=== PATIENT | female | born 1955 | race Caucasian/White ===

== ENCOUNTER → 2016-11-11 | Outpatient (CLI) | payer OTHER ==
--- NOTE | 2016-11-11 12:16 | EST ---
DATE OF SERVICE: 11/11/2016 AGE: 61Y SEX: F HT: 63" WT: 239 lbs. Protocol Jimmie: X Other: Stress Stage: 3 Dur. of Exercise: 6:00 *Heart Rate Blood Pressure *Rest: 102 Rest: 137/90 * *Max. Achieved: 140 Maximum BP: 205/104 85% PMHR: 136 100% PMHR: 160 *METS: 7.3 INDICATIONS: Chest pain. MEDICATIONS: Losartan, atorvastatin, metformin. Baseline EKG shows sinus rhythm, poor R-wave progression, normal axis, normal intervals. Patient exercised on Jimmie protocol for a total of 6 minutes, achieving 7 METs, 87% of predicted maximal heart rate without chest pain. Test was stopped secondary to fatigue and tiredness. PVCs are noted throughout the study. There was no significant ST-segment depression. CONCLUSION: 1. Average exercise tolerance. 2. Negative stress test by EKG criteria. 3. Frequent premature ventricular contractions.
== END | disposition home or self-care (01) ==
LOC: RADNMMAIN 10:41
PROVIDERS: ATTEND Family Medicine
DX: I49.3 Ventricular premature depolarization (principal); R07.9 Chest pain, unspecified; Z79.84 Long term (current) use of oral hypoglycemic drugs; Z79.899 Other long term (current) drug therapy
CPT/HCPCS: 93017

== ENCOUNTER → 2017-03-25 | Outpatient (CLI) | payer OTHER ==
[2017-03-25 09:14] LABS: Blood Urea Nitrogen 22 mg/dL (7-17); Non-African American GFR(MDRD) >60 (>60 ml/min/1.73 sqM)
--- NOTE | 2017-03-25 10:17 | CT ---
EXAMINATION TYPE: CT soft tissue neck w con DATE OF EXAM: 03/25/2017 COMPARISON: NONE HISTORY: Swelling, mass, lump in neck CT DLP: 806 mGycm CONTRAST: CT scan of the neck is performed with IV Contrast, patient injected with 100 ml mL of Omnipaque 300. Contrast enhanced CT of the neck was performed from the skull base through the lung apices. AIRWAY: The supraglottic, glottic, and subglottic portions of the airway appear patent and free of mass. Mild fullness of the tonsillar pillars bilaterally. SALIVARY GLANDS: Mild fullness of the right submandibular gland relative to its left-sided counterpar t measuring 3.6 x 2.7 cm versus 3.3 x 1.8 cm. No visible mass or significant surrounding inflammatory change. No evidence for sialolithiasis. Parotid glands appear to be symmetric. THYROID GLAND: No nodules or masses seen. LYMPH NODES: No adenopathy seen greater than 1cm. LUNG APICES: No nodule or mass is seen. OTHER: Vascular structures are patent. No significant degenerative change of the cervical spine. N o abscess seen. Mucous retention cyst or polyp within the right maxillary sinus. IMPRESSION: 1. Mild asymmetric fullness of the right submandibular gland versus its left-sided counterpart withou t evidence for intrinsic mass or inflammatory change. Correlate clinically. 2. Small mucous retention cyst or polyp within the right maxillary sinus. 3.Mild fullness of the tonsillar pillars bilaterally.
== END | disposition home or self-care (01) ==
LOC: RADCTMAIN 08:17
PROVIDERS: ATTEND Otolaryngology
DX: J35.8 Other chronic diseases of tonsils and adenoids (principal)
CPT/HCPCS: 82565; 84520; 70491; 36415; Q9967

== ENCOUNTER → 2017-04-23 | Outpatient (CLI) | payer OTHER ==
[2017-04-23 11:04] LABS: ALT 43 U/L (9-52); AST 23 U/L (14-36); Alkaline Phosphatase 71 U/L (38-126); Anion Gap 11 mmol/L; Blood Urea Nitrogen 19 mg/dL (7-17); Calcium 9.7 mg/dL (8.4-10.2); Carbon Dioxide 23 mmol/L (22-30); Chloride 104 mmol/L (98-107); Cholesterol 219 mg/dL (<200); Glucose 166 mg/dL (74-99); HDL Cholesterol 60 mg/dL (40-60); Non-African American GFR(MDRD) >60 (>60 ml/min/1.73 sqM); Potassium 4.7 mmol/L (3.5-5.1); Sodium 138 mmol/L (137-145); Total Bilirubin 0.6 mg/dL (0.2-1.3); Total Protein 7.4 g/dL (6.3-8.2)
[2017-04-23 13:22] LABS: Hemoglobin A1C 7.4 % (4.2-6.1)
== END | disposition home or self-care (01) ==
LOC: LABWHC1 10:06
PROVIDERS: ATTEND Family Medicine
DX: E11.9 Type 2 diabetes mellitus without complications (principal)
CPT/HCPCS: 36415; 80053; 80061; 83036

== ENCOUNTER 2017-05-11 09:25 | Emergency (ER) | payer OTHER ==
[2017-05-11] MEDS ORDERED: KETOROLAC 60 MG/2 ML VIAL IM STA (09:49)
[2017-05-11] MEDS ORDERED: ORPHENADRINE 30 MG/ML 2 ML VIAL IM STA (09:49)
[2017-05-11] MEDS ORDERED: MORPHINE SULFATE 10 MG/ML SYRINGE IM STA (09:49)
--- NOTE | 2017-05-11 10:33 | XR ---
EXAMINATION TYPE: XR lumbar spine 2 or 3V , 3 VIEWS DATE OF EXAM ORDERED: 05/11/2017 HISTORY: Pain. COMPARISON: None. FINDINGS: There has been a previous cholecystectomy. Vertebral body height is maintained. There is a degenerative grade 1 spondylolisthesis of L5 on S1. T here is disc space loss at L5-S1. This hypertrophic spondylosis at L4-5 as well as in the lower thora cic spine. There is facet arthropathy in the lower lumbar facets. The pedicles are intact. IMPRESSION: 1. NO ACUTE OSSEOUS LESION. 2. MODERATELY SEVERE DEGENERATIVE CHANGE.
--- NOTE | 2017-05-11 10:35 | ED ---
Back Pain HPI - General Chief Complaint: Back Pain/Injury Stated Complaint: back pain Time Seen by Provider: 05/11/17 09:41 Source: patient, RN notes reviewed, old records reviewed Limitations: no limitations - History of Present Illness Initial Comments: This is a 62-year-old female with multiple back injuries in the past presented to emergency department with 2 days of increased lower back pain. She reports that she twisted wrong yesterday. Patient states that it's worse with certain movements. Denies any saddle anesthesias or urinary incontinence. States that she was taking Flexeril and had no relief of the pain. Patient denies any recent falls or trauma to the lower back. Denies any abdominal pain. - Related Data Home Medications Medication Instructions Recorded Confirmed Atorvastatin [Lipitor] 40 mg PO HS 04/21/14 05/11/17 metFORMIN HCL [Glucophage] 500 mg PO HS 04/21/14 05/11/17 ALPRAZolam [Xanax] 0.25 mg PO DAILY PRN 01/18/16 05/11/17 Losartan/Hydrochlorothiazide 1 tab PO DAILY 03/14/16 05/11/17 [Losartan-Hctz 100-25 mg Tab] Albuterol Inhaler [Ventolin Hfa 2 puff INHALATION RT-Q6H PRN 05/11/17 05/11/17 Inhaler] Multivitamins, Thera [Multivitamin 1 tab PO DAILY 05/11/17 05/11/17 (formulary)] Previous Rx's Medication Instructions Recorded Acetaminophen-Codeine 300-30mg 1 tab PO Q6H PRN #15 tablet 05/11/17 [Tylenol #3] Baclofen 10 mg PO TID #15 tab 05/11/17 Dexamethasone 0.75 mg PO DAILY #12 tab 05/11/17 Allergies Allergy/AdvReac Type Severity Reaction Status Date / Time No Known Allergies Allergy Verified 05/11/17 10:06 Review of Systems ROS Statement: Those systems with pertinent positive or pertinent negative responses have been documented in the HPI. ROS Other: All systems not noted in ROS Statement are negative. Past Medical History Past Medical History: Diabetes Mellitus, Hyperlipidemia, Hypertension, Osteoarthritis (OA) Additional Past Medical History / Comment(s): Seasonal allergies, Bruise on R arm History of Any Multi-Drug Resistant Organisms: None Reported Past Surgical History: Back Surgery, Cholecystectomy, Hysterectomy, Orthopedic Surgery Additional Past Surgical History / Comment(s): Colonoscopy. EDG,REMOVAL OF PLATE AND SCREW FROM BACK,NECK SURGERY, LEFT KNEE ARTHROSCOPIC,RIGHT HAND SURGERY, Past Anesthesia/Blood Transfusion Reactions: No Reported Reaction Past Psychological History: Anxiety Smoking Status: Current every day smoker Past Alcohol Use History: Daily Past Drug Use History: Marijuana - Past Family History Mother Family Medical History: No Reported History Sister(s) Family Medical History: Cancer Additional Family Medical History / Comment(s): Breast. General Exam - General Exam Comments Initial Comments: This is a 62 year old female, patient appears in distress. Limitations: no limitations General appearance: alert, in no apparent distress Head exam: Present: atraumatic, normocephalic, normal inspection Eye exam: Present: normal appearance, PERRL, EOMI. Absent: scleral icterus, conjunctival injection, periorbital swelling ENT exam: Present: normal exam, mucous membranes moist Neck exam: Present: normal inspection. Absent: tenderness, meningismus, lymphadenopathy Respiratory exam: Present: normal lung sounds bilaterally. Absent: respiratory distress, wheezes, rales, rhonchi, stridor Cardiovascular Exam: Present: regular rate, normal rhythm, normal heart sounds. Absent: systolic murmur, diastolic murmur, rubs, gallop, clicks GI/Abdominal exam: Present: soft, normal bowel sounds. Absent: distended, tenderness, guarding, rebound, rigid Extremities exam: Present: normal inspection, full ROM, normal capillary refill. Absent: tenderness, pedal edema, joint swelling, calf tenderness Back exam: Present: normal inspection, tenderness (lumbar spinal tenderness. ) Neurological exam: Present: alert, oriented X3, CN II-XII intact Psychiatric exam: Present: normal affect, normal mood Skin exam: Present: warm, dry, intact, normal color. Absent: rash Course Vital Signs 05/11/17 05/11/17 09:34 10:55 Temperature 98.4 F 97.0 F L Pulse Rate 102 H 72 Respiratory 20 18 Rate Blood Pressure 179/99 168/80 O2 Sat by Pulse 97 Oximetry Medical Decision Making - Medical Decision Making This is a 62-year-old female with multiple back injuries in the past presented to emergency department with 2 days of increased lower back pain. She reports that she twisted wrong yesterday. Patient is tender over lumbar spine, and it is worse with movement. No abdominal pain, and the pain does not radiate down the leg. She states that it becomes worse with a certain movement. Patient lumbar spine xray shows moderate arthritic changes. Patient given IM pain medication and feeling better. Patient will be discharged with pain medication and antiinflammatory medicaiotn. Discussed follow up with PCP in 1-2 days. REturn paramters discussed. - Radiology Data Radiology results: report reviewed No acute osseous lesion. Moderately severe degenerative changes. Degenerative grade 1 spondylolisthesis of L5 on S1. The L5-S1. Spondylosis of L4-L5. Disposition Clinical Impression: Acute exacerbation of chronic low back pain Disposition: HOME SELF-CARE Condition: Good Instructions: Acute Low Back Pain (ED) Additional Instructions: Patient should follow-up with PCP and orthopedic back specialist. Patient should take medications as prescribed. Return to the emergency department if any alarming signs or symptoms occur. Prescriptions: Acetaminophen-Codeine 300-30mg [Tylenol #3] 1 tab PO Q6H PRN #15 tablet PRN Reason: Pain Baclofen 10 mg PO TID #15 tab Dexamethasone 0.75 mg PO DAILY #12 tab Referrals: Efren Higgins MD [Primary Care Provider] - 1-2 days Time of Disposition: 10:39
[2017-05-11 10:55] VITALS: BP 168/80; PULSE 72; RESP 18; TEMP 97
== END 2017-05-11 10:55 | disposition home or self-care (01) ==
LOC: EC 09:25
DX: M54.5 Low back pain (principal); G89.29 Other chronic pain; M43.17 Spondylolisthesis, lumbosacral region; M47.816 Spondylosis without myelopathy or radiculopathy, lumbar region; E11.9 Type 2 diabetes mellitus without complications; E78.5 Hyperlipidemia, unspecified; I10 Essential (primary) hypertension; F17.200 Nicotine dependence, unspecified, uncomplicated; Z79.84 Long term (current) use of oral hypoglycemic drugs; Z79.899 Other long term (current) drug therapy
CPT/HCPCS: 99284; 96372 ×3; 72100; J2360; J2270; J1885

== ENCOUNTER → 2017-05-26 | Outpatient (CLI) | payer OTHER ==
[2017-05-26 11:38] LABS: Blood Urea Nitrogen 21 mg/dL (7-17); Non-African American GFR(MDRD) >60 (>60 ml/min/1.73 sqM)
== END | disposition home or self-care (01) ==
LOC: LABWHC1 10:39
PROVIDERS: ATTEND Orthopaedic Surgery Orthopaedic Surgery of the Spine
DX: Z01.812 Encounter for preprocedural laboratory examination (principal); N28.9 Disorder of kidney and ureter, unspecified
CPT/HCPCS: 36415; 82565; 84520

== ENCOUNTER → 2017-06-13 | Outpatient (CLI) | payer OTHER ==
[2017-06-13 10:38] LABS: Basophils # (A) 0.1 k/uL (0-0.2); Basophils % (A) 1 %; CH 34.5; CHCM 34.2; Eosinophils # (A) 0.1 k/uL (0-0.7); Eosinophils % (A) 2 %; HDW 2.33; HGB 13.8 gm/dL (11.4-16.0); Luc # (Auto) 0.13; Luc % (Auto) 2; Lymphocytes # (A) 2.6 k/uL (1.0-4.8); Lymphocytes % (A) 38 %; MCH 34.1 pg (25.0-35.0); MCHC 33.7 g/dL (31.0-37.0); MCV 101.4 fL (80.0-100.0); Macrocytosis Slight; Mean Platelet Volume 7.2; Monocytes # (A) 0.4 k/uL (0-1.0); Monocytes % (A) 6 %; Neutrophils # (A) 3.5 k/uL (1.3-7.7); Neutrophils % (A) 52 %; RBC 4.04 m/uL (3.80-5.40); RDW 13.4 % (11.5-15.5); WBC 6.8 k/uL (3.8-10.6)
[2017-06-13 10:41] LABS: Prothrombin Time 10.2 sec (9.0-12.0)
[2017-06-13 10:42] LABS: Partial Thromboplastin Time 24.5 sec (22.0-30.0)
[2017-06-13 10:43] LABS: Appearance,Urine Clear (Clear); Bilirubin,Urine Negative (Negative); Glucose,Urine (UA) 2+ (Negative); Ketones,Urine Negative (Negative); Leukocyte Esterase,Urine Negative (Negative); Nitrite,Urine Negative (Negative); PH, Urine 5.5 (5.0-8.0); Protein,Urine Negative (Negative); Specific Gravity,Urine 1.013 (1.001-1.035); UA Billing (MACRO vs. MICRO) CHEM; Urobilinogen,Urine <2.0 mg/dL (<2.0)
[2017-06-13 11:07] LABS: Anion Gap 12 mmol/L; Blood Urea Nitrogen 23 mg/dL (7-17); Calcium 9.8 mg/dL (8.4-10.2); Carbon Dioxide 26 mmol/L (22-30); Chloride 102 mmol/L (98-107); Glucose 144 mg/dL (74-99); Non-African American GFR(MDRD) >60 (>60 ml/min/1.73 sqM); Potassium 4.5 mmol/L (3.5-5.1); Sodium 140 mmol/L (137-145)
--- NOTE | 2017-06-13 11:45 | XR ---
EXAMINATION TYPE: XR chest 2V DATE OF EXAM: 06/13/2017 COMPARISON: Prior chest x-ray 04/21/2014 HISTORY: Presurgical testing TECHNIQUE: Frontal and lateral views of the chest are obtained. FINDINGS: There is no focal air space opacity, pleural effusion, or pneumothorax seen. The cardiac silhouette size is within normal limits. Lung volumes are prominent suggesting underlying COPD. Multi level thoracic spondylosis. Postop changes are noted to the cervical spine. There are old left-sided rib fractures which appear healed. Intact. IMPRESSION: No acute cardiopulmonary process.
== END | disposition home or self-care (01) ==
LOC: RADXRMAIN 09:45
PROVIDERS: ATTEND Orthopaedic Surgery Orthopaedic Surgery of the Spine
DX: Z01.818 Encounter for other preprocedural examination (principal); Z01.812 Encounter for preprocedural laboratory examination; M48.00 Spinal stenosis, site unspecified
CPT/HCPCS: 36415; 71020; 80048; 81003; 85025; 85610; 85730

== ENCOUNTER → 2017-06-19 | Outpatient (CLI) | payer OTHER | END | disposition home or self-care (01) | LOC: LABPAT 12:14 | PROVIDERS: ATTEND Orthopaedic Surgery Orthopaedic Surgery of the Spine | DX: Z01.812 Encounter for preprocedural laboratory examination (principal) | CPT/HCPCS: 87070 ==

== ENCOUNTER → 2017-10-24 | Outpatient (CLI) | payer OTHER ==
[2017-10-24 11:50] LABS: Basophils # (A) 0.1 k/uL (0-0.2); Basophils % (A) 1 %; Eosinophils # (A) 0.2 k/uL (0-0.7); Eosinophils % (A) 3 %; HGB 13.5 gm/dL (11.4-16.0); Lymphocytes # (A) 2.7 k/uL (1.0-4.8); Lymphocytes % (A) 35 %; MCH 31.8 pg (25.0-35.0); MCHC 32.8 g/dL (31.0-37.0); MCV 96.9 fL (80.0-100.0); Mean Platelet Volume 6.3; Monocytes # (A) 0.4 k/uL (0-1.0); Monocytes % (A) 6 %; Neutrophils # (A) 4.1 k/uL (1.3-7.7); Neutrophils % (A) 54 %; Platelet Count 298 k/uL (150-450); RBC 4.23 m/uL (3.80-5.40); RDW 13.1 % (11.5-15.5); WBC 7.7 k/uL (3.8-10.6)
[2017-10-24 12:17] LABS: ALT 38 U/L (9-52); AST 25 U/L (14-36); Albumin 4.6 g/dL (3.5-5.0); Alkaline Phosphatase 71 U/L (38-126); Anion Gap 10 mmol/L; Blood Urea Nitrogen 23 mg/dL (7-17); Calcium 9.8 mg/dL (8.4-10.2); Carbon Dioxide 29 mmol/L (22-30); Chloride 101 mmol/L (98-107); Cholesterol 191 mg/dL (<200); Glucose 142 mg/dL (74-99); HDL Cholesterol 67 mg/dL (40-60); LDL Cholesterol,Calculated 107 mg/dL (0-99); Potassium 4.9 mmol/L (3.5-5.1); Sodium 140 mmol/L (137-145); Total Bilirubin 0.3 mg/dL (0.2-1.3); Total Protein 7.8 g/dL (6.3-8.2); Triglycerides 87 mg/dL (<150)
[2017-10-24 16:48] LABS: Hemoglobin A1C 7.2 % (4.0-6.0)
== END ==
LOC: LABWHC1 11:23
PROVIDERS: ATTEND Family Medicine
DX: E11.9 Type 2 diabetes mellitus without complications (principal)
CPT/HCPCS: 36415; 80053; 80061; 82043; 82570; 83036; 84443; 85025

== ENCOUNTER → 2019-01-01 | Outpatient (CLI) | payer OTHER ==
[2019-01-01 11:11] LABS: Appearance,Urine Clear (Clear); Bilirubin,Urine Negative (Negative); Blood,Urine Negative (Negative); Color,Urine Light Yellow; Glucose,Urine (UA) 2+ (Negative); Ketones,Urine Negative (Negative); Leukocyte Esterase,Urine Negative (Negative); Nitrite,Urine Negative (Negative); Protein,Urine Negative (Negative); Specific Gravity,Urine 1.011 (1.001-1.035); Urobilinogen,Urine <2.0 mg/dL (<2.0)
[2019-01-01 11:24] LABS: HCT 41.7 % (34.0-46.0); HGB 13.9 gm/dL (11.4-16.0); MCH 33.2 pg (25.0-35.0); MCHC 33.3 g/dL (31.0-37.0); MCV 99.8 fL (80.0-100.0); Mean Platelet Volume 7.2; Platelet Count 314 k/uL (150-450); RBC 4.18 m/uL (3.80-5.40); RDW 13.1 % (11.5-15.5); WBC 6.1 k/uL (3.8-10.6)
[2019-01-01 11:39] LABS: INR 0.9 (<1.2); Partial Thromboplastin Time 24.1 sec (22.0-30.0); Prothrombin Time 9.8 sec (9.0-12.0)
[2019-01-01 11:40] LABS: Albumin 4.6 g/dL (3.5-5.0); Calcium 9.9 mg/dL (8.4-10.2); Potassium 4.8 mmol/L (3.5-5.1); Total Bilirubin 0.5 mg/dL (0.2-1.3); Total Protein 7.7 g/dL (6.3-8.2)
== END | disposition home or self-care (01) ==
LOC: LABPAT 10:16
PROVIDERS: ATTEND Orthopaedic Surgery
DX: Z01.818 Encounter for other preprocedural examination (principal); Z01.812 Encounter for preprocedural laboratory examination
CPT/HCPCS: 36415; 80053; 81003; 85027; 85610; 85730; 87070; 93005

== ENCOUNTER 2019-01-18 08:42 | Inpatient (IN) | payer OTHER ==
[2019-01-11 15:15] VITALS: BMI 42.0
[~2019-01-18 08:42] MED LIST: ACETAMINOPHEN TAB 500 MG TAB PO ONE; DEXAMETHASONE SOD PHOSPHATE 10 MG/ML 1 ML VIAL IV ONE; HYDROmorphone 0.5 MG/0.5 ML SYRINGE IVP PRN; LACTATED RINGERS 1,000 ML IV SCH; MELOXICAM 7.5 MG TAB PO ONE; MIDAZOLAM 2 MG/2 ML VIAL IV PRN; ONDANSETRON 4 MG/2 ML VIAL IVP ONE; SCOPOLAMINE 1.5MG/72HR PATCH TRANSDERM ONE; TRANEXAMIC ACID 1,000 MG in SODIUM CHLORIDE 0.9% 100 ML IVPB ONE; ceFAZolin IN SWFI 2 GM/20 ML SYRINGE IVP ONE
[2019-01-18 09:25] LABS: Glucose,Whole Blood 191 mg/dL (75-99)
[2019-01-18] MEDS ORDERED: fentaNYL (PF) 50 MCG/ML 2 ML AMP IVP ONE (09:27)
[2019-01-18] MEDS ORDERED: ONDANSETRON 4 MG/2 ML VIAL IVP PRN (09:30)
[2019-01-18] MEDS ORDERED: NALOXONE 0.4 MG/ML 1 ML VIAL IV PRN (09:30)
[2019-01-18] MEDS ORDERED: DIAZEPAM 5 MG TAB PO PRN (09:30)
[2019-01-18] MEDS ORDERED: HYDROcodone/APAP 5-325MG 1 EACH TAB PO PRN (09:30)
[2019-01-18] MEDS ORDERED: BISACODYL 10 MG SUPP RECTAL PRN (09:30)
[2019-01-18] MEDS ORDERED: HYDROmorphone 0.5 MG/0.5 ML SYRINGE IVP PRN ×2 (09:30)
[2019-01-18] MEDS ORDERED: HYDROmorphone 1 MG/ML 1 ML SYRINGE IVP PRN (09:30)
[2019-01-18] MEDS ORDERED: NA PHOS,M-B/NA PHOS,DI-BA 133 ML ENEMA RECTAL PRN (09:30)
[2019-01-18] MEDS ORDERED: MAGNESIUM HYDROXIDE 2,400 MG/10 ML CUP PO PRN (09:30)
[2019-01-18] MEDS ORDERED: fentaNYL (PF) 50 MCG/ML 2 ML AMP ONE (09:54)
[2019-01-18] MEDS ORDERED: SODIUM CHLORIDE 0.9% 100 ML BAG ONE (09:54)
[2019-01-18] MEDS ORDERED: TRANEXAMIC ACID 1,000 MG/10 ML VIAL ONE (09:54)
[2019-01-18] MEDS ORDERED: PROPOFOL 10 MG/ML 20 ML VIAL IV ONE (09:54)
[2019-01-18] MEDS ORDERED: diphenhydrAMINE 50 MG/ML 1 ML VIAL ONE (09:54)
[2019-01-18] MEDS ORDERED: MIDAZOLAM 2 MG/2 ML VIAL ONE (09:54)
[2019-01-18] MEDS ORDERED: PHENYLEPHRINE-0.9% NACL SYG 1 MG/10 ML SYRINGE ONE (09:54)
[2019-01-18] MEDS: ROPIVACAINE 246.25 MG, EPINEPHrine 0.5 MG, KETOROLAC 30 MG, WATER FOR INJECTION,STERILE... MISCELLANE ONE ×8 (10:02→11:04)
[2019-01-18] MEDS ORDERED: ceFAZolin 3,000 MG in SODIUM CHLORIDE 0.9% IRRIGATIO 3,000 ML IRRIGATION ONE (10:08)
[2019-01-18] MEDS ORDERED: ROPIVACAINE 1,100 MG, SODIUM CHLORIDE 0.9% 500 ML 330 ML MISCELLANE PRN ×2 (10:24)
--- NOTE | 2019-01-18 10:41 | P.ONQ ---
Anesthesiology Proc Note - PNB - Peripheral Nerve Block Performed Right Adductor Canal Infusion Time Out Performed: Yes Procedure Start Time: 09:25 Indication: Acute Post-Operative Pain, Analgesia Specifically requested for management of pain by DrRakel: Brandon Glass Sedation Type: Sedate with meaningful contact maintained Preparation: Sterile Prep Position: Supine Catheter Depth at Skin (cm): 8 Catheter: Indwelling Needle Types: Other (see comment) (PAJUNK) Needle Size: 100mm (4") Needle Gauge: 18 Technique: Ultrasound Injectate: 0.5% Ropivacaine (see comment for volume) (20cc) Blood Aspirated: No Pain Paresthesia on Injection Noted: No Resistance on Injection: Normal Events: Uneventful and Well Tolerated
--- NOTE | 2019-01-18 11:15 | P.OP ---
Date of Procedure: 01/18/19 Preoperative Diagnosis: Severe osteoarthritis right knee Postoperative Diagnosis: Severe osteoarthritis right knee Procedure(s) Performed: Right total knee arthroplasty Implants: Saldivar and Nephew Journey II CR Oxinium cruciate retaining femoral component size 6, right Saldivar [employer]hew Journey right nonporous tibial baseplate size 5 Saldivar [employer] Nephew Journey II, XLPE CR articular insert, size 9 mm, Size 5-6 right Sal[employer]ar [employer]hew Journey BCS resurfacing oval patellar component, 29 mm All components were cemented using Palacos R bone cement.. The articulation is Oxinium on polyethylene. Anesthesia: spinal Surgeon: Brandon Glass Industrial Hygienist #1: Sheridan Walter Estimated Blood Loss (ml): 50 Pathology: other (Bone and cartilage) Condition: stable Disposition: PACU Indications for Procedure: After failure of conservative treatment we discussed the surgical and nonsurgical treatment options at length. Patient wishes to proceed with a total knee arthroplasty. Complications specific to this procedure were discussed at length, including but not limited to infection, bleeding, stiffness, and nerve injury. Patient is aware of all these complications and informed consent was obtained Operative Findings: The operative findings are consistent with severe osteoarthritis of the right knee Description of Procedure: Patient was seen in the preoperative area consent was reviewed and operative site was marked with a skin marker. An adductor canal pain catheter was placed by anesthesia in the preoperative area. Patient was then brought to the operating room and given preoperative antibiotics intravenously. A spinal anesthetic was administered by the anesthesia department. A tourniquet was placed on the upper thigh and the lower extremity was prepped and draped in usual sterile fashion. A gram of transexamic acid was given. A universal timeout was then performed which confirmed the patient's name, surgical site, ALLERGIES, and consent. The lower extremity was then exsanguinated and tourniquet was inflated to 250 mmHg. A standard and anterior midline approach to the knee was performed. The skin and subcutaneous tissue was dissected down to the patellar tendon. A medial parapatellar arthrotomy was then performed. The knee was then extended, the patellar was everted, and the knee was again flexed. Anterior horns of both menisci were excised, and a release was performed to the posterior medial aspect of the knee. On gross visual inspection, there was complete loss of articular cartilage in the medial and patellofemoral joint spaces. There was also significant cartilage damage in the lateral compartment. There were multiple periarticular osteophytes which were then removed with a Ronguer. The femoral canal was then opened with the appropriate drill, and the intramedullary femoral cutting guide was then placed and set for 5 of valgus. The distal femoral cutting block was then pinned in place, and the distal femur was then cut. The cutting block was then removed and the cut was checked for flatness. Next, the sizing guide was then placed and set for 3 external rotation based off of the epicondylar axis and Whitesides line. After the femur was sized, the appropriate 4-in-1 cutting block was then pinned in place. The anterior condyles were cut without notching. The posterior and chamfer cuts were performed while protecting the collateral ligaments. The cutting block was then removed, and the femoral canal was plugged with autologous bone. Attention was then directed to the tibia. The remaining ACL was removed with a Ronguer, and the tibia was then gently subluxed forward with a large bent knee retractor. Any remaining menisci was excised. The posterior lateral corner was cauterized in order to cauterize the lateral geniculate artery. The extra medullary tibial cutting guide was then placed, set for the appropriate rotation, slope, and depth of resection. The proximal tibia cutting guide was then pinned in place. Proximal tibia was then cut and sized. Next trials were then placed with the appropriate-sized insert. The knee was able to fully extend and flex to 130 and was stable throughout all range of motion. The knee was then extended, patella everted. Patella was then measured, and then using an osteotomy guide, the patella was cut at the appropriate level. The patella was then measured and drilled and the patella trial was then placed. The knee was then taken through range of motion with the patella trial and the patella tracked normally. The knee was then extended patella trial was then removed and the patella was everted. Knee was then flexed and lug holes were drilled through the femoral trial and the femoral trial was then removed. The tibial was then exposed, and the tibial broach guide was then pinned in place after it was set for the appropriate rotation to allow for the most coverage without overhang. The tibia was then reamed and broached. The cut surfaces of bone were then irrigated with pulsatile lavage. The posterior structures were injected with the ropivacaine solution. The knee was also irrigated with Irrisept solution. The components were then opened, the cement was mixed, and the components were then cemented in place. The cement was allowed to harden with the knee in full extension. While the cement was hardening, the remaining soft tissues were then injected with a ropivacaine solution, which consisted of 246.25 mg of ropivacaine, 0.5 mg of epinephrine, 30 mg of Toradol, 80 g of clonidine, and 48.45 mL of sterile water, for a total of 100 mL of fluid injected. After the cemented hardened. The tourniquet was released, and hemostasis was obtained. A second gram of transexamic acid was given. The knee was again irrigated. The knee was again taken through range of motion and found to be stable throughout all range of motion of 0-130, and the patella tracked normally. The fascia was then closed with #2 strata fix suture. The subcutaneous tissue was closed with 3-0 Vicryl and 3-0 strata fix. Dermabond glue was used for the skin and placed with the knee in flexion. The patient was placed in a sterile silver dressing. Patient was then transferred to recovery room in stable condition. The leasing assistant ANTOINE Mcarthur was required due the complexity surgery and the need for a skilled surgical nurse. She assisted in positioning, draping, retraction, and closure of the wound.
--- NOTE | 2019-01-18 11:56 | XR ---
EXAMINATION TYPE: XR knee limited RT DATE OF EXAM: 01/18/2019 COMPARISON: NONE TECHNIQUE: Two views submitted HISTORY: Post op FINDINGS: There is a prosthetic knee in near anatomic alignment. There is soft tissue edema and emphysema. IMPRESSION: 1. Postoperative change. Appears in near-anatomic alignment
[2019-01-18] MEDS ORDERED: LACTATED RINGERS 1,000 ML IV ONE (12:13)
[2019-01-18 13:01] LABS: Glucose,Whole Blood 155 mg/dL (75-99)
[2019-01-18] MEDS: hydrOXYzine PAMOATE 25 MG CAP PO PRN ×2 (13:26→20:35)
[2019-01-18] MEDS: SODIUM CHLORIDE 0.9% 1,000 ML IV SCH (13:27)
[2019-01-18] MEDS: HYDROcodone/APAP 5-325MG 1 EACH TAB PO PRN ×2 (13:27→20:34)
[2019-01-18] MEDS: ceFAZolin IN SWFI 2 GM/20 ML SYRINGE IVP SCH (17:20)
[2019-01-18] MEDS ORDERED: ALBUTEROL NEBULIZED 2.5 MG/3 ML INHALATION PRN (18:10)
[2019-01-18] MEDS ORDERED: BACLOFEN 10 MG TAB PO PRN (18:10)
[2019-01-18] MEDS ORDERED: ALPRAZolam 0.25 MG TAB PO PRN (18:10)
[2019-01-18 20:29] LABS: Glucose,Whole Blood 247 mg/dL (75-99)
[2019-01-18] MEDS: ASPIRIN 325 MG TAB PO SCH (20:34)
[2019-01-18] MEDS ORDERED: SENNOSIDES-DOCUSATE SODIUM 1 EACH TAB PO SCH (21:00)
[2019-01-18] MEDS ORDERED: metFORMIN 500 MG TAB PO SCH (21:00)
[2019-01-18] MEDS ORDERED: ATORVASTATIN 40 MG TAB PO SCH (21:00)
--- NOTE | 2019-01-19 00:44 | CONS ---
CONSULTATION DATE OF CONSULTATION: 01/18/2019 REASON FOR CONSULTATION: Medical management requested by Dr. Glass. CONSULTATION: This is a pleasant 63-year-old patient of Dr. Higgins who has undergone a right total knee arthroplasty. Postprocedure pain is controlled. No nausea, vomiting. Chronic stable medical conditions include COPD, diabetes, hyperlipidemia, hypertension, osteoarthritis, anxiety. Sitting up in a bed. The patient is a smoker. Denies any cardiac history. REVIEW OF SYSTEMS: CONSTITUTIONAL: None. HEENT none. RESPIRATORY: Occasional wheezing. CARDIOVASCULAR: None. GASTROINTESTINAL: None. MUSCULOSKELETAL: Arthritic pain in joints. DERMATOLOGICAL, HEMATOLOGIC, LYMPHATIC: none. PSYCHIATRY none. NEUROLOGICAL none. PAST MEDICAL HISTORY: COPD, diabetes, hyperlipidemia, hypertension, osteoarthritis, anxiety. PAST SURGICAL HISTORY: Back surgery, cholecystectomy, hysterectomy, orthopedic surgery, removal of plate and screw from the back, neck surgery, left knee arthroscopy, right hand surgery. PSYCH HISTORY: Anxiety. SOCIAL HISTORY: Patient is smoking a pack a day for close to 46 years. Does medical marijuana. . FAMILY HISTORY: Reviewed, noncontributory to presentation. HOME MEDICATIONS: 1. Glucophage 500 mg q.h.s. 2. Multivitamin 1 tablet p.o. daily. 3. Losartan/hydrochlorothiazide 100/25 1 tablet p.o. daily. 4. Lipitor 40 mg q.h.s. 5. Ventolin HFA 2 puffs q.6 p.r.n. 6. Xanax 0.25 p.o. daily p.r.n. ALLERGIES: None. PHYSICAL EXAMINATION: VITAL SIGNS: Temperature 96.9, pulse 101, respirations 16, blood pressure 166/81, pulse ox 95% on room air. Repeat blood pressure 135/83. GENERAL APPEARANCE: Well built, BMI 42.1. Sitting up, awake, not in distress. EYES: Pupils equal. Conjunctivae normal. HEENT: External appearance of nose and ears normal. Oral cavity normal. NECK: JVD not raised. Mass not palpable. RESPIRATORY: Effort normal. LUNGS: Diminished breath sounds. Minimal wheezing. CARDIOVASCULAR: First and second sounds normal. No edema. ABDOMEN: Soft, nontender. Liver and spleen not palpable. LYMPHATIC: No lymph nodes palpable in the neck and axilla. PSYCHIATRY: Alert and oriented x3. Mood and affect normal. NEUROLOGICAL: Pupils equal. Cranial nerves grossly intact. Power and sensation grossly intact. EXTREMITIES: Right knee in a dressing. INVESTIGATIONS: Accu-Cheks are noted. Lab work from January 01, 2019 shows a white count of 6.1, hemoglobin 13.9, platelets 3.4, potassium 4.8. ASSESSMENT: 1. Right total knee arthroplasty. 2. Diabetes mellitus type 2, on oral hypoglycemic. 3. Hyperlipidemia. 4. Essential hypertension. 5. Primary osteoarthritis. 6. Chronic obstructive pulmonary disease in a current smoker. 7. Chronic nicotine dependence, patient is a cigarette smoker. PLAN: Home medications are resumed. Patient getting aspirin for DVT prophylaxis per Dr. Glass. Patient advised against smoking. Will be given a nicotine patch. Other home medications are to be reviewed Thank you, Dr. Glass. Copy to Dr. Higgins. MMKATIAL / PATRICIAN: [phone] /
[2019-01-19] MEDS: ceFAZolin IN SWFI 2 GM/20 ML SYRINGE IVP SCH (03:07)
[2019-01-19] MEDS: SODIUM CHLORIDE 0.9% 1,000 ML IV SCH (03:50)
[2019-01-19] MEDS: HYDROcodone/APAP 5-325MG 1 EACH TAB PO PRN (05:21)
[2019-01-19] MEDS: hydrOXYzine PAMOATE 25 MG CAP PO PRN (05:21)
[2019-01-19 07:07] LABS: Glucose,Whole Blood 137 mg/dL (75-99)
[2019-01-19 07:27] LABS: Basophils # (A) 0.1 k/uL (0-0.2); Basophils % (A) 1 %; Eosinophils # (A) 0.2 k/uL (0-0.7); Eosinophils % (A) 1 %; HCT 35.6 % (34.0-46.0); HGB 11.5 gm/dL (11.4-16.0); Lymphocytes # (A) 1.7 k/uL (1.0-4.8); Lymphocytes % (A) 15 %; MCH 32.4 pg (25.0-35.0); MCHC 32.3 g/dL (31.0-37.0); MCV 100.2 fL (80.0-100.0); Mean Platelet Volume 6.6; Monocytes # (A) 0.6 k/uL (0-1.0); Monocytes % (A) 5 %; Neutrophils # (A) 9.2 k/uL (1.3-7.7); Neutrophils % (A) 77 %; Platelet Count 254 k/uL (150-450); RBC 3.55 m/uL (3.80-5.40); RDW 12.5 % (11.5-15.5); WBC 11.9 k/uL (3.8-10.6)
[2019-01-19] MEDS: ASPIRIN 325 MG TAB PO SCH (07:41)
[2019-01-19 08:23] VITALS: BP 125/76; PULSE 80; RESP 12; TEMP 98
[2019-01-19] MEDS ORDERED: MULTIVITAMINS, THERA 1 EACH TAB PO SCH (09:00)
[2019-01-19] MEDS ORDERED: MELOXICAM 7.5 MG TAB PO SCH (09:00)
[2019-01-19] MEDS ORDERED: LOSARTAN-HCTZ 50-12.5 MG 1 EACH TAB PO SCH (09:00)
--- NOTE | 2019-01-19 10:36 | P.PN ---
Progress Note - Text 01/19 633am 63-year-old female status post total knee replacement. Patient has an On-Q pump for postop pain control and she had a VAS of 2 at rest. Doing well continue On- Q pump infusion
--- NOTE | 2019-01-19 14:41 | P.DS ---
Providers Date of admission: 01/18/19 08:42 Expected date of discharge: 01/19/19 Attending physician: Brandon Glass Consults: 01/18/19 09:30 Consult Physician Routine Consulting Provider: Faheem Johnson Consult Reason/Comments: medical management Do you want consulting provider notified?: Yes Primary care physician: Beau Higgins - Discharge Diagnosis(es) (1) Osteoarthritis of right knee Status: Acute (2) Status post total right knee replacement Status: Acute Hospital Course: This is a 63-year-old female with known history of degenerative arthritis of the right knee. The patient presents for evaluation. After discussion and consideration patient elects to proceed with total knee arthroplasty. The patient is seen preoperatively by Dr. Glass and medically cleared for surgery by their primary care physician. Patient is admitted to [facility] on 01/18/2019 for total knee arthroplasty. The procedures performed without complication or sequelae. The patient is doing well postoperatively. Labs and vital signs are stable on day of discharge. On day of discharge patient's knee incision is healing well. There is minimal erythema. There is no drainage noted at this time. There is minimal soft tissue swelling to the knee. Patient has full foot and ankle motion without difficulty or pain. Calf is soft and nontender to palpation. Neurovascular status to the right lower extremity is intact. Patient is discharged home in good condition. Opioid start talking form is reviewed and signed at patient bedside. Please see med rec for accurate list of home medications. Plan - Discharge Summary Discharge Rx Participant: Yes New Discharge Prescriptions: New Aspirin 325 mg PO BID #60 tab HYDROcodone/APAP 5-325MG [[place] 5-325] 1 - 2 tab PO Q6HR PRN #56 tab PRN Reason: Pain Sennosides [Senokot] 1 tab PO BID #60 tablet No Action metFORMIN HCL [Glucophage] 500 mg PO HS Atorvastatin [Lipitor] 40 mg PO HS ALPRAZolam [Xanax] 0.25 mg PO DAILY PRN PRN Reason: Anxiety Losartan/Hydrochlorothiazide [Losartan-Hctz 100-25 mg Tab] 1 tab PO DAILY Multivitamins, Thera [Multivitamin (formulary)] 1 tab PO DAILY Albuterol Inhaler [Ventolin Hfa Inhaler] 2 puff INHALATION RT-Q6H PRN PRN Reason: Shortness Of Breath Baclofen 10 mg PO TID PRN PRN Reason: muscle relaxant Discharge Medication List Atorvastatin [Lipitor] 40 mg PO HS 04/21/14 [History] metFORMIN HCL [Glucophage] 500 mg PO HS 04/21/14 [History] ALPRAZolam [Xanax] 0.25 mg PO DAILY PRN 01/18/16 [History] Losartan/Hydrochlorothiazide [Losartan-Hctz 100-25 mg Tab] 1 tab PO DAILY 03/14/16 [History] Albuterol Inhaler [Ventolin Hfa Inhaler] 2 puff INHALATION RT-Q6H PRN 05/11/17 [History] Multivitamins, Thera [Multivitamin (formulary)] 1 tab PO DAILY 05/11/17 [History] Baclofen 10 mg PO TID PRN 06/18/17 [History] Aspirin 325 mg PO BID #60 tab 01/19/19 [Rx] HYDROcodone/APAP 5-325MG [[place] 5-325] 1 - 2 tab PO Q6HR PRN #56 tab 01/19/19 [Rx] Sennosides [Senokot] 1 tab PO BID #60 tablet 01/19/19 [Rx] Follow up Appointment(s)/Referral(s): [facility], [NON-STAFF] - Efren Higgins MD [Primary Care Provider] - 02/02/19 3:20 pm Brandon Glass DO [Doctor of Osteopathic Medicine] - 02/01/19 9:20 am Delisa Nicholas [NON-STAFF] - Ambulatory/Diagnostic Orders: Continuous Passive Motion (CPM) Machine [DME.AMB1] Time Frame: 3 Weeks, Location: None Selected Activity/Diet/Wound Care/Special Instructions: 1. Weightbearing as tolerated with a walker. 2. Please call [facility] [employer] once home to arrange delivery of continuous passive motion (CPM) machine - [phone]. Use CPM 5-6h daily. 3. Leave dressing intact. May be removed by home care nurse or by patient in 10 days. 4. May shower with dressing on. 5. Please follow up with [facility] and call with any questions or concerns, . Discharge Disposition: HOME WITH HOME HEALTH SERVICES
[2019-01-19 15:55] LABS: Hemoglobin A1C 7.5 % (4.0-6.0)
--- NOTE | 2019-01-21 09:44 | PN ---
PROGRESS NOTE DATE OF SERVICE: 01/19/2019 PRESENTING COMPLAINT: Right knee surgery. INTERVAL HISTORY: This patient is seen by me on 01/19/2019. Patient doing well. Pain is controlled. Up and about, doing better, tolerating a diet. REVIEW OF SYSTEMS: Done for constitutional, cardiovascular, GI, pulmonary, musculoskeletal; relevant findings as above. CURRENT MEDICATIONS: Reviewed. PHYSICAL EXAMINATION: Temperature 98, pulse 80, respiration 12, blood pressure 120/76, pulse ox 94% on room air. GENERAL APPEARANCE: Sitting up, comfortable. EYES: Pupils equal, conjunctivae are normal. NECK: JVD not raised. Mass not palpable. RESPIRATORY: Effort normal. LUNGS: Diminished breath sounds. CARDIOVASCULAR: First and second sounds normal, no edema. ABDOMEN: Soft, nontender. Liver and spleen not palpable. PSYCHIATRY: Alert and oriented x3. Mood and affect normal. INVESTIGATIONS: White count 11.9, hemoglobin 11.5. ASSESSMENT: 1. Right total knee arthroplasty. 2. Diabetes mellitus type 2 on oral hypoglycemics. 3. Hyperlipidemia. 4. Essential hypertension. 5. Primary osteoarthritis. 6. Chronic obstructive pulmonary disease in a current smoker. 7. Chronic nicotine dependence, patient is a cigarette smoker. PLAN: Stable, continue medication and treatment plan. Care was discussed with the patient. MMODL / IJN: [id number] /
== END 2019-01-19 12:45 | disposition home health service (06) | DRG 470 ==
LOC: 2ORMAIN 08:42 → 4SSUR 12:57
PROVIDERS: ADMIT Orthopaedic Surgery; ATTEND Orthopaedic Surgery
PROC: 3E0T3BZ Introduction of Anesthetic Agent into Peripheral Nerves and Plexi, Percutaneous Approach (ICD-10-PCS; 2019-01-18)
PROC: 0SRC069 Replacement of Right Knee Joint with Oxidized Zirconium on Polyethylene Synthetic Substitute, Cemented, Open Approach (ICD-10-PCS; principal; 2019-01-18 14:50)
DX: M17.11 Unilateral primary osteoarthritis, right knee (principal); E11.9 Type 2 diabetes mellitus without complications; E78.5 Hyperlipidemia, unspecified; F17.210 Nicotine dependence, cigarettes, uncomplicated; F41.9 Anxiety disorder, unspecified; I10 Essential (primary) hypertension; J44.9 Chronic obstructive pulmonary disease, unspecified; Z79.84 Long term (current) use of oral hypoglycemic drugs; Z79.899 Other long term (current) drug therapy; Z90.710 Acquired absence of both cervix and uterus; Z90.49 Acquired absence of other specified parts of digestive tract
CPT/HCPCS: 83036; 85025; 88300

== ENCOUNTER → 2019-04-21 | Outpatient (CLI) | payer OTHER ==
[2019-04-21 10:28] LABS: HCT 41.2 % (34.0-46.0); MCH 33.2 pg (25.0-35.0); MCV 97.7 fL (80.0-100.0); Mean Platelet Volume 6.8; Platelet Count 352 k/uL (150-450); RBC 4.21 m/uL (3.80-5.40); RDW 13.4 % (11.5-15.5); WBC 6.1 k/uL (3.8-10.6)
[2019-04-21 10:29] LABS: Appearance,Urine Clear (Clear); Bilirubin,Urine Negative (Negative); Blood,Urine Negative (Negative); Color,Urine Yellow; Glucose,Urine (UA) Trace (Negative); Ketones,Urine Negative (Negative); Leukocyte Esterase,Urine Negative (Negative); Nitrite,Urine Negative (Negative); Protein,Urine Negative (Negative); Specific Gravity,Urine 1.015 (1.001-1.035); Urobilinogen,Urine <2.0 mg/dL (<2.0)
[2019-04-21 10:37] LABS: INR 0.9 (<1.2); Partial Thromboplastin Time 25.2 sec (22.0-30.0); Prothrombin Time 9.8 sec (9.0-12.0)
[2019-04-21 10:55] LABS: Albumin 4.4 g/dL (3.5-5.0); Calcium 9.8 mg/dL (8.4-10.2); Potassium 5.1 mmol/L (3.5-5.1); Total Bilirubin 0.3 mg/dL (0.2-1.3); Total Protein 7.9 g/dL (6.3-8.2)
== END | disposition home or self-care (01) ==
LOC: LABPAT 09:58
PROVIDERS: ATTEND Orthopaedic Surgery
DX: Z01.812 Encounter for preprocedural laboratory examination (principal); M17.12 Unilateral primary osteoarthritis, left knee
CPT/HCPCS: 36415; 80053; 81003; 85027; 85610; 85730; 87070

== ENCOUNTER 2019-05-10 07:36 | Day surgery (SDC) | payer OTHER ==
[~2019-05-10 07:36] MED LIST changes: -HYDROmorphone 0.5 MG/0.5 ML SYRINGE IVP PRN; +ROPIVACAINE 246.25 MG, EPINEPHrine 0.5 MG, KETOROLAC 30 MG, cloNIDine HCL/PF 80 MCG, WA... MISCELLANE ONE; -ceFAZolin IN SWFI 2 GM/20 ML SYRINGE IVP ONE
[2019-05-10 08:12] LABS: Glucose,Whole Blood 136 mg/dL (75-99)
[2019-05-10] MEDS ORDERED: LIDOCAINE 1% 20 ML VIAL (10MG/ML) FOR IV START SQ ONE (08:13)
[2019-05-10] MEDS ORDERED: BISACODYL 10 MG SUPP RECTAL PRN (08:22)
[2019-05-10] MEDS ORDERED: HYDROcodone/APAP 5-325MG 1 EACH TAB PO PRN (08:22)
[2019-05-10] MEDS ORDERED: HYDROmorphone 1 MG/ML 1 ML SYRINGE IVP PRN (08:22)
[2019-05-10] MEDS ORDERED: DIAZEPAM 5 MG TAB PO PRN (08:22)
[2019-05-10] MEDS ORDERED: ONDANSETRON 4 MG/2 ML VIAL IVP PRN (08:22)
[2019-05-10] MEDS ORDERED: MAGNESIUM HYDROXIDE 2,400 MG/10 ML CUP PO PRN (08:22)
[2019-05-10] MEDS ORDERED: hydrOXYzine PAMOATE 25 MG CAP PO PRN (08:22)
[2019-05-10] MEDS ORDERED: NALOXONE 0.4 MG/ML 1 ML VIAL IV PRN (08:22)
[2019-05-10] MEDS ORDERED: NA PHOS,M-B/NA PHOS,DI-BA 133 ML ENEMA RECTAL PRN (08:22)
[2019-05-10] MEDS ORDERED: HYDROmorphone 0.5 MG/0.5 ML SYRINGE IVP PRN ×2 (08:22)
[2019-05-10] MEDS ORDERED: MIDAZOLAM (PF) 2 MG/2 ML VIAL IV ONE (08:26)
--- NOTE | 2019-05-10 08:45 | P.ANPRN ---
Procedure Note - Anesthesia - Nerve Block Performed Left Adductor Canal Time Out Performed: Yes (8:25) Date of Procedure: 05/10/19 Procedure Start Time: : Procedure Stop Time: : Location of Patient Procedure: PreOp Indication: Acute Post-Operative Pain, Requested by Surgeon (Dr Soares) Sedation Type: Sedate with meaningful contact maintained Preparation: Sterile Prep, Sterile Dressing Position: Supine Catheter: Indwelling Needle Types: On-Q Needle Gauge: 21 Ultrasound used to visualize needle placement: Yes Ultrasound used to observe medication spread: Yes Injectate: 0.5% Ropivacaine (see comment for volume) (20cc) Blood Aspirated: No Pain Paresthesia on Injection Noted: No Resistance on Injection: Normal Image Stored and Saved: Yes Events: Uneventful and Well Tolerated
[2019-05-10] MEDS ORDERED: ROPIVACAINE 0.2%-NS ON-Q PUMP 1,090 MG, EMPTY PAIN BALL 1 EACH MISCELLANE PRN (09:38)
[2019-05-10] MEDS ORDERED: PROPOFOL 10 MG/ML 20 ML VIAL IV ONE (09:53)
[2019-05-10] MEDS ORDERED: ePHEDrine SULFATE/0.9% NACL/PF 50 MG/5 ML SYRINGE IV ONE (09:53)
[2019-05-10] MEDS ORDERED: MIDAZOLAM 2 MG/2 ML VIAL ONE (09:53)
[2019-05-10] MEDS ORDERED: fentaNYL (PF) 50 MCG/ML 2 ML AMP ONE (09:53)
[2019-05-10] MEDS ORDERED: SODIUM CHLORIDE 0.9% 100 ML BAG ONE (09:53)
[2019-05-10] MEDS ORDERED: TRANEXAMIC ACID 1,000 MG/10 ML VIAL ONE (09:53)
[2019-05-10] MEDS ORDERED: diphenhydrAMINE 50 MG/ML 1 ML VIAL ONE (09:53)
[2019-05-10] MEDS ORDERED: ceFAZolin 3,000 MG in SODIUM CHLORIDE 0.9% IRRIGATIO 3,000 ML IRRIGATION ONE (10:28)
[2019-05-10] MEDS ORDERED: LACTATED RINGERS 1,000 ML IV ONE (10:45)
--- NOTE | 2019-05-10 11:22 | P.OP ---
Date of Procedure: 05/10/19 Preoperative Diagnosis: Severe osteoarthritis left knee Postoperative Diagnosis: Severe osteoarthritis left knee Procedure(s) Performed: Left total knee arthroplasty Implants: Saldivar and Nephew Journey II CR Oxinium cruciate retaining femoral component size 6, left Saldivar [employer] Nephew Journey left nonporous tibial baseplate size 5 Saldivar [employer] Nephew Journey II, XLPE CR articular insert, size 10 mm, Size 5-6 left Saldivar [employer] Nephew Journey BCS resurfacing oval patellar component, 29 mm All components were cemented using Palacos R bone cement.. The articulation is Oxinium on polyethylene. Anesthesia: spinal Surgeon: Brandon Glass Bronc Buster #1: Sheridan Walter Estimated Blood Loss (ml): 50 Pathology: other (Bone and cartilage) Condition: stable Disposition: PACU Indications for Procedure: After failure of conservative treatment we discussed the surgical and nonsurgical treatment options at length. Patient wishes to proceed with a total knee arthroplasty. Complications specific to this procedure were discussed at length, including but not limited to infection, bleeding, stiffness, and nerve injury. Patient is aware of all these complications and informed consent was obtained Operative Findings: The operative findings are consistent with severe osteoarthritis of the left knee Description of Procedure: Patient was seen in the preoperative area consent was reviewed and operative site was marked with a skin marker. An adductor canal pain catheter was placed by anesthesia in the preoperative area. Patient was then brought to the operating room and given preoperative antibiotics intravenously. A spinal anesthetic was administered by the anesthesia department. A tourniquet was placed on the upper thigh and the lower extremity was prepped and draped in usual sterile fashion. A gram of transexamic acid was given. A universal timeout was then performed which confirmed the patient's name, surgical site, ALLERGIES, and consent. The lower extremity was then exsanguinated and tourniquet was inflated to 250 mmHg. A standard and anterior midline approach to the knee was performed. The skin and subcutaneous tissue was dissected down to the patellar tendon. A medial parapatellar arthrotomy was then performed. The knee was then extended, the patellar was everted, and the knee was again flexed. Anterior horns of both menisci were excised, and a release was performed to the posterior medial aspect of the knee. On gross visual inspection, there was complete loss of articular cartilage in the medial and patellofemoral joint spaces. There was also significant cartilage damage in the lateral compartment. There were multiple periarticular osteophytes which were then removed with a Ronguer. The femoral canal was then opened with the appropriate drill, and the intramedullary femoral cutting guide was then placed and set for 5 of valgus. The distal femoral cutting block was then pinned in place, and the distal femur was then cut. The cutting block was then removed and the cut was checked for flatness. Next, the sizing guide was then placed and set for 3 external rotation based off of the epicondylar axis and Whitesides line. After the femur was sized, the appropriate 4-in-1 cutting block was then pinned in place. The anterior condyles were cut without notching. The posterior and chamfer cuts were performed while protecting the collateral ligaments. The cutting block was then removed, and the femoral canal was plugged with autologous bone. Attention was then directed to the tibia. The remaining ACL was removed with a Ronguer, and the tibia was then gently subluxed forward with a large bent knee retractor. Any remaining menisci was excised. The posterior lateral corner was cauterized in order to cauterize the lateral geniculate artery. The extra medullary tibial cutting guide was then placed, set for the appropriate rotation, slope, and depth of resection. The proximal tibia cutting guide was then pinned in place. Proximal tibia was then cut and sized. Next trials were then placed with the appropriate-sized insert. The knee was able to fully extend and flex to 130 and was stable throughout all range of motion. The knee was then extended, patella everted. Patella was then measured, and then using an osteotomy guide, the patella was cut at the appropriate level. The patella was then measured and drilled and the patella trial was then placed. The knee was then taken through range of motion with the patella trial and the patella tracked normally. The knee was then extended patella trial was then removed and the patella was everted. Knee was then flexed and lug holes were drilled through the femoral trial and the femoral trial was then removed. The tibial was then exposed, and the tibial broach guide was then pinned in place after it was set for the appropriate rotation to allow for the most coverage without overhang. The tibia was then reamed and broached. The cut surfaces of bone were then irrigated with pulsatile lavage. The posterior structures were injected with the ropivacaine solution. The knee was also irrigated with Irrisept solution. The components were then opened, the cement was mixed, and the components were then cemented in place. The cement was allowed to harden with the knee in full extension. While the cement was hardening, the remaining soft tissues were then injected with a ropivacaine solution, which consisted of 246.25 mg of ropivacaine, 0.5 mg of epinephrine, 30 mg of Toradol, 80 g of clonidine, and 48.45 mL of sterile water, for a total of 100 mL of fluid injected. After the cemented hardened. The tourniquet was released, and hemostasis was obtained. A second gram of transexamic acid was given. The knee was again irrigated. The knee was again taken through range of motion and found to be stable throughout all range of motion of 0-130, and the patella tracked normally. The fascia was then closed with #2 strata fix suture. The subcutaneous tissue was closed with 3-0 Vicryl and 3-0 strata fix. Dermabond glue was used for the skin and placed with the knee in flexion. The patient was placed in a sterile silver dressing. Patient was then transferred to recovery room in stable condition. The fire control assistant ANTOINE Mcarthur was required due the complexity surgery and the need for a skilled registered nurse surgical services. She assisted in positioning, draping, retraction, and closure of the wound.
--- NOTE | 2019-05-10 12:16 | XR ---
EXAMINATION TYPE: XR knee limited LT DATE OF EXAM: 05/10/2019 COMPARISON: NONE TECHNIQUE: Two views submitted HISTORY: Post op FINDINGS: There is a prosthetic knee in near anatomic alignment. There is soft tissue edema and emphysema. IMPRESSION: 1. Postoperative change. Appears in near-anatomic alignment
[2019-05-10] MEDS: HYDROmorphone 0.5 MG/0.5 ML SYRINGE IVP PRN ×4 (14:00→15:26)
[2019-05-10 16:48] LABS: Glucose,Whole Blood 146 mg/dL (75-99)
[2019-05-10 16:49] VITALS: BMI 39.7
[2019-05-10] MEDS ORDERED: ALPRAZolam 0.25 MG TAB PO PRN (17:04)
[2019-05-10] MEDS ORDERED: BACLOFEN 10 MG TAB PO PRN (17:04)
[2019-05-10] MEDS ORDERED: ALBUTEROL NEBULIZED 2.5 MG/3 ML INHALATION PRN (17:04)
[2019-05-10] MEDS: INSULIN ASPART (NovoLOG) 100 UNIT/ML VIAL SQ SCH ×2 (17:32→21:23)
[2019-05-10] MEDS: HYDROcodone/APAP 5-325MG 1 EACH TAB PO PRN (17:39)
[2019-05-10] MEDS: SODIUM CHLORIDE 0.9% 1,000 ML IV SCH (17:39)
[2019-05-10 20:15] LABS: Glucose,Whole Blood 190 mg/dL (75-99)
[2019-05-10] MEDS ORDERED: SENNOSIDES-DOCUSATE SODIUM 1 EACH TAB PO SCH (21:00)
[2019-05-10] MEDS ORDERED: ATORVASTATIN 40 MG TAB PO SCH (21:00)
[2019-05-10] MEDS ORDERED: metFORMIN 500 MG TAB PO SCH (21:00)
[2019-05-10] MEDS: ASPIRIN 325 MG TAB PO SCH (21:23)
[2019-05-11] MEDS: SODIUM CHLORIDE 0.9% 1,000 ML IV SCH (00:38)
[2019-05-11] MEDS: HYDROcodone/APAP 5-325MG 1 EACH TAB PO PRN ×2 (02:47→09:10)
--- NOTE | 2019-05-11 07:07 | P.PN ---
Progress Note - Text Progress Note Date: 05/11/19 Postoperative day # 1 status post total knee arthroplasty, under spinal anesthesia, and adductor canal catheter placed for postoperative analgesia, currently at ropivacaine 0.2% 8 mL per hour and continuous infusion, visual analogue scale is 4/10, patient using oral pain medication for breakthrough pain. Assessment and plan= Acute postoperative pain, adductor canal catheter for pain control, pain is well controlled we'll continue the same management.
[2019-05-11 07:17] LABS: Basophils % (A) 0 %; Eosinophils # (A) 0.2 k/uL (0-0.7); Eosinophils % (A) 1 %; HCT 31.6 % (34.0-46.0); Lymphocytes # (A) 1.1 k/uL (1.0-4.8); Lymphocytes % (A) 9 %; MCH 33.3 pg (25.0-35.0); MCHC 34.2 g/dL (31.0-37.0); MCV 97.3 fL (80.0-100.0); Mean Platelet Volume 6.9; Monocytes # (A) 0.5 k/uL (0-1.0); Monocytes % (A) 4 %; Neutrophils # (A) 11.2 k/uL (1.3-7.7); Neutrophils % (A) 86 %; Platelet Count 272 k/uL (150-450); RBC 3.25 m/uL (3.80-5.40); RDW 14.5 % (11.5-15.5); WBC 13.1 k/uL (3.8-10.6)
[2019-05-11 07:19] LABS: Glucose,Whole Blood 98 mg/dL (75-99)
[2019-05-11 07:36] LABS: HGB 10.8 gm/dL (11.4-16.0)
[2019-05-11] MEDS ORDERED: LOSARTAN-HCTZ 50-12.5 MG 1 EACH TAB PO SCH (09:00)
[2019-05-11] MEDS ORDERED: MELOXICAM 7.5 MG TAB PO SCH (09:00)
[2019-05-11] MEDS: INSULIN ASPART (NovoLOG) 100 UNIT/ML VIAL SQ SCH (09:03)
--- NOTE | 2019-05-11 09:06 | P.DS ---
Providers Expected date of discharge: 05/11/19 Attending physician: Brandon Glass Consults: 05/10/19 08:22 Consult Physician Routine Consulting Provider: Faheem Johnson Consult Reason/Comments: medical management Do you want consulting provider notified?: Yes Primary care physician: Beau Higgins - Discharge Diagnosis(es) (1) Osteoarthritis of left knee Current Visit: Yes Status: Acute (2) S/P total knee arthroplasty Current Visit: Yes Status: Acute Hospital Course: This is a 64-year-old female with known history of degenerative arthritis of the left knee. The patient presents for evaluation. After discussion and consideration patient elects to proceed with total knee arthroplasty. The patient is seen preoperatively by Dr. Glass and medically cleared for surgery by their primary care physician. Patient is admitted to [facility] on 05/10/2019 for total knee arthroplasty. The procedures performed without complication or sequelae. The patient is doing well postoperatively. Labs and vital signs are stable on day of discharge. On day of discharge patient's knee incision is healing well. There is minimal erythema. There is no drainage noted at this time. There is minimal soft tissue swelling to the knee. Patient has full foot and ankle motion without difficulty or pain. Calf is soft and nontender to palpation. Neurovascular status to the left lower extremity is intact. Patient is discharged home in good condition. Opioid start talking form is reviewed and signed at patient bedside. Please see med rec for accurate list of home medications. Plan - Discharge Summary Discharge Rx Participant: Yes New Discharge Prescriptions: New Aspirin 325 mg PO BID #60 tab HYDROcodone/APAP 5-325MG [[place] 5-325] 1 - 2 tab PO Q6HR PRN #56 tab PRN Reason: Pain Sennosides [Senokot] 1 tab PO BID #60 tablet No Action metFORMIN HCL [Glucophage] 500 mg PO HS Atorvastatin [Lipitor] 40 mg PO HS ALPRAZolam [Xanax] 0.25 mg PO DAILY PRN PRN Reason: Anxiety Losartan/Hydrochlorothiazide [Losartan-Hctz 100-25 mg Tab] 1 tab PO QAM Multivitamins, Thera [Multivitamin (formulary)] 1 tab PO DAILY Albuterol Inhaler [Ventolin Hfa Inhaler] 2 puff INHALATION RT-Q6H PRN PRN Reason: Shortness Of Breath Baclofen 10 mg PO TID PRN PRN Reason: muscle relaxant HYDROcodone/APAP 5-325MG [[place] 5-325] 1 - 2 tab PO Q6HR PRN #56 tab PRN Reason: Pain Discharge Medication List Atorvastatin [Lipitor] 40 mg PO HS 04/21/14 [History] metFORMIN HCL [Glucophage] 500 mg PO HS 04/21/14 [History] ALPRAZolam [Xanax] 0.25 mg PO DAILY PRN 01/18/16 [History] Losartan/Hydrochlorothiazide [Losartan-Hctz 100-25 mg Tab] 1 tab PO QAM 03/14/16 [History] Albuterol Inhaler [Ventolin Hfa Inhaler] 2 puff INHALATION RT-Q6H PRN 05/11/17 [History] Multivitamins, Thera [Multivitamin (formulary)] 1 tab PO DAILY 05/11/17 [History] Baclofen 10 mg PO TID PRN 06/18/17 [History] HYDROcodone/APAP 5-325MG [[place] 5-325] 1 - 2 tab PO Q6HR PRN #56 tab 01/19/19 [Rx] Aspirin 325 mg PO BID #60 tab 05/11/19 [Rx] HYDROcodone/APAP 5-325MG [[place] 5-325] 1 - 2 tab PO Q6HR PRN #56 tab 05/11/19 [Rx] Sennosides [Senokot] 1 tab PO BID #60 tablet 05/11/19 [Rx] Follow up Appointment(s)/Referral(s): Brandon Glass DO [Doctor of Osteopathic Medicine] - 05/21/19 9:00 am Ambulatory/Diagnostic Orders: Continuous Passive Motion (CPM) Machine [DME.AMB1] Time Frame: 3 Weeks, Location: None Selected Ambulatory Physical Therapy Order [THER.AMB] Location: None Selected Activity/Diet/Wound Care/Special Instructions: Weightbearing as tolerated with a walker. CPM 5-6h daily. Leave dressing intact. May be removed by home care nurse or by patient in 10 days. May shower with dressing on. Recommend use of compression stockings daily for at least 2 weeks during the day to help prevent swelling and blood clots. May remove at night before sleeping. Please follow up with [facility] and call with any questions or concerns, . Discharge Disposition: HOME WITH HOME HEALTH SERVICES
[2019-05-11] MEDS: ASPIRIN 325 MG TAB PO SCH (09:10)
[2019-05-11 09:33] VITALS: BP 123/64; RESP 16; TEMP 97.2
[2019-05-11 09:57] VITALS: PULSE 84
[2019-05-11 11:13] LABS: Glucose,Whole Blood 132 mg/dL (75-99)
--- NOTE | 2019-05-11 14:47 | P.CONS ---
History of Present Illness - Reason for Consult Consult date: 05/11/19 Medical management Requesting physician: Brandon Glass - Chief Complaint Left knee arthroplasty - History of Present Illness Consultation: This is a pleasant 64-year-old patient of Dr. Higgins. Patient is undergone left total knee arthroplasty. Chronic stable medical conditions include diabetes mellitus, hypertension, hyperlipidemia, osteoarthritis and COPD. Patient does have an inhaler. Pain is controlled. No nausea vomiting. Did tolerate a meal earlier. Breathing is stable. No chest pain. Sitting up in bed. Comfortable. Review of systems: GEN.: None EYES: None HEENT: None NECK: None RESPIRATORY: Occasional wheezing CARDIOVASCULAR: None GASTROINTESTINAL: None GENITOURINARY: None MUSCULOSKELETAL: Pain in different joints LYMPHATICS: None HEMATOLOGICAL: None PSYCHIATRY: None NEUROLOGICAL: None Past medical history to include: Diabetes, hyperlipidemia, hypertension, osteoarthritis, anxiety, COPD Social history: Smoking a pack a day for close to 47 years. Drinks 1 or 2 beers a day. Does medical marijuana. . Family history: Breast disorder Physical examination: VITAL SIGNS: 97.2, 95, 16, 123/64 95% GENERAL: BMI 40, sitting up in bed, not in distress. EYES: Pupils equal. Conjunctiva normal. HEENT: External appearance of nose and ears normal, oral cavity grossly normal. NECK: JVD not raised; masses not palpable. HEART: First and second heart sounds are normal; no edema. LUNGS: Respiratory rate normal; diminished breath sounds. ABDOMEN: Soft, nontender, liver spleen not palpable, no masses palpable. PSYCH: Alert and oriented x3; mood and affect normal. NEUROLOGICAL: Cranial nerves grossly intact; no facial asymmetry, power and sensation grossly intact. LYMPHATICS: No lymph nodes palpable in the axilla and neck MUSCULOSKELETAL: Evidence of OA in the hands, dressing over the left knee Assessment: -Left total knee arthroplasty -Primary osteoarthritis -Diabetes mellitus type 2 on oral hypoglycemic -Essential hypertension -Hyperlipidemia -COPD in a current smoker -Chronic nicotine dependence patient cigarette smoker -Morbid obesity BMI 40 Plan: Home medications to be resumed. Accu-Cheks to be followed. Care was discussed with the patient. Advised against smoking. Patient should follow with the family upon discharge. Questions were answered Thank you Dr. Glass Past Medical History Past Medical History: Diabetes Mellitus, Hyperlipidemia, Hypertension, Osteoarthritis (OA) Additional Past Medical History / Comment(s): Seasonal allergies History of Any Multi-Drug Resistant Organisms: None Reported Past Surgical History: Back Surgery, Cholecystectomy, Hysterectomy, Orthopedic Surgery Additional Past Surgical History / Comment(s): lt total knee,Colonoscopy. EDG,Back,REMOVAL OF PLATE AND SCREW FROM BACK,NECK SURGERY, LEFT KNEE ARTHROSCOPIC,RIGHT HAND SURGERY, Past Anesthesia/Blood Transfusion Reactions: No Reported Reaction Additional Past Anesthesia/Blood Transfusion Reaction / Comm: no hx blood transfusion Past Psychological History: Anxiety Smoking Status: Current every day smoker Past Alcohol Use History: Daily Additional Past Alcohol Use History / Comment(s): Smokes 1 PPD -STARTED SMOKING AT AGE 17,drinks 1-2 beers per day Past Drug Use History: Marijuana Additional Drug Use History / Comment(s): Has a medical marijuana card, smokes approx. twice a month. - Past Family History Mother Family Medical History: No Reported History Sister(s) Family Medical History: Cancer Additional Family Medical History / Comment(s): Breast. Medications and Allergies Home Medications Medication Instructions Recorded Confirmed Type Atorvastatin [Lipitor] 40 mg PO HS 04/21/14 05/10/19 History metFORMIN HCL [Glucophage] 500 mg PO HS 04/21/14 05/10/19 History ALPRAZolam [Xanax] 0.25 mg PO DAILY PRN 01/18/16 05/10/19 History Losartan/Hydrochlorothiazide 1 tab PO QAM 03/14/16 05/10/19 History [Losartan-Hctz 100-25 mg Tab] Albuterol Inhaler [Ventolin Hfa 2 puff INHALATION RT-Q6H PRN 05/11/17 05/10/19 History Inhaler] Multivitamins, Thera [Multivitamin 1 tab PO DAILY 05/11/17 05/10/19 History (formulary)] Baclofen 10 mg PO TID PRN 06/18/17 05/10/19 History HYDROcodone/APAP 5-325MG [[place] 1 - 2 tab PO Q6HR PRN #56 tab 01/19/19 05/10/19 Rx 5-325] Aspirin 325 mg PO BID #60 tab 05/11/19 Rx HYDROcodone/APAP 5-325MG [[place] 1 - 2 tab PO Q6HR PRN #56 tab 05/11/19 Rx 5-325] Sennosides [Senokot] 1 tab PO BID #60 tablet 05/11/19 Rx Allergies Allergy/AdvReac Type Severity Reaction Status Date / Time No Known Allergies Allergy Verified 05/10/19 07:55 Physical Exam Vitals: Vital Signs Temp Pulse Resp BP Pulse Ox 05/11/19 08:00 84 16 05/11/19 07:00 97.2 F L 95 16 123/64 95 05/11/19 01:03 98.1 F 79 18 111/69 93 L 05/10/19 23:00 98.2 F 84 18 113/68 96 05/10/19 16:50 98.2 F 93 16 142/81 95 05/10/19 15:45 79 14 128/60 99 05/10/19 15:15 75 16 140/68 98 05/10/19 14:45 82 16 134/65 98 Intake and Output 05/10/19 05/11/19 05/11/19 22:59 06:59 14:59 Intake Total 50 1040 Balance 50 1040 Intake: Intake, IV Titration 50 800 Amount Sodium Chloride 0.9% 1, 750 000 ml @ 75 mls/hr IV . [id number] [facility] Rx#:[id number] ceFAZolin 2 gm In Sodium 50 50 Chloride 0.9% 50 ml @ 100 mls/hr IVPB Q8H [facility] Rx#: [id number] Oral 240 Other: # Voids 1 Results CBC & Chem 7: 05/11/19 06:11 Labs: Abnormal Lab Results - Last 24 Hours (Table) 05/10/19 05/10/19 05/11/19 Range/Units 16:43 20:03 06:11 WBC 13.1 H (3.8-10.6) k/uL RBC 3.25 L (3.80-5.40) m/uL Hgb 10.8 L D (11.4-16.0) gm/dL Hct 31.6 L (34.0-46.0) % Neutrophils # 11.2 H (1.3-7.7) k/uL POC Glucose (mg/dL) 146 H 190 H (75-99) mg/dL 05/11/19 Range/Units 11:02 WBC (3.8-10.6) k/uL RBC (3.80-5.40) m/uL Hgb (11.4-16.0) gm/dL Hct (34.0-46.0) % Neutrophils # (1.3-7.7) k/uL POC Glucose (mg/dL) 132 H (75-99) mg/dL
== END 2019-05-11 11:38 | disposition home health service (06) ==
LOC: OR 07:36 → 4SSUR 16:26 → OR 05-11 11:38
PROVIDERS: ATTEND Orthopaedic Surgery
DX: M17.12 Unilateral primary osteoarthritis, left knee (principal); M25.762 Osteophyte, left knee; I10 Essential (primary) hypertension; F32.9 Major depressive disorder, single episode, unspecified; M16.10 Unilateral primary osteoarthritis, unspecified hip; E78.2 Mixed hyperlipidemia; E11.9 Type 2 diabetes mellitus without complications; K21.9 Gastro-esophageal reflux disease without esophagitis; J44.9 Chronic obstructive pulmonary disease, unspecified; J30.9 Allergic rhinitis, unspecified; Z96.651 Presence of right artificial knee joint; E66.01 Morbid (severe) obesity due to excess calories; Z68.41 Body mass index [BMI] 40.0-44.9, adult; F41.9 Anxiety disorder, unspecified; F17.210 Nicotine dependence, cigarettes, uncomplicated; Z87.01 Personal history of pneumonia (recurrent); R26.9 Unspecified abnormalities of gait and mobility; Z97.3 Presence of spectacles and contact lenses; Z90.710 Acquired absence of both cervix and uterus; Z90.49 Acquired absence of other specified parts of digestive tract; Z83.3 Family history of diabetes mellitus; Z82.49 Family history of ischemic heart disease and other diseases of the circulatory system; Z79.84 Long term (current) use of oral hypoglycemic drugs; Z79.899 Other long term (current) drug therapy; Z79.1 Long term (current) use of non-steroidal anti-inflammatories (NSAID); Z79.82 Long term (current) use of aspirin; Z79.891 Long term (current) use of opiate analgesic; Z88.8 Allergy status to other drugs, medicaments and biological substances; Z88.4 Allergy status to anesthetic agent; Z88.1 Allergy status to other antibiotic agents; Z91.030 Bee allergy status
CPT/HCPCS: 27447; 64448; 97161; 85025; 88300; 73560; C1713 ×2; C1772; J2250 ×2; J0171; J1200; J1100; J0690 ×3; J2405; J3010; J1885; J2795 ×2; J2704; J0735; J1170

== ENCOUNTER → 2019-10-07 | Outpatient (CLI) | payer OTHER ==
--- NOTE | 2019-10-07 12:27 | CT ---
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 TECHNIQUE: Helical acquisition of images from the lung bases through the pelvis have been completed. CONTRAST: Performed with Oral Contrast and with IV Contrast, patient injected with 100 mL of Isovue 300. FINDINGS: Possible small hiatal hernia. LUNG BASES: No significant abnormality is appreciated. AORTA: No significant abnormality is appreciated. LIVER/GB: Patient is status post cholecystectomy. The liver is enlarged. Liver shows low attenuation likely due to hepatic steatosis. PANCREAS: No significant abnormality is seen. SPLEEN: No significant abnormality is seen. ADRENALS: No significant abnormality is seen. KIDNEYS: No significant abnormality is seen. REPRODUCTIVE ORGANS: Suspect the ovaries are present within the pelvis. Uterus is not seen. BOWEL: Extensive diverticular changes are present within the colon. The appendix is normal. FREE AIR: No Free Air visible. ASCITES: None visible. PELVIC ADENOPATHY: None visualized. RETROPERITONEAL ADENOPATHY: No Retroperitoneal Adenopathy visible. URINARY BLADDER: No significant abnormality is seen. OSSEOUS STRUCTURES: Postop changes are noted status post posterior L3-L5 lumbar fusion, multilevel s pondylosis is present, intervertebral present L4-5. IMPRESSION: EXTENSIVE DIVERTICULOSIS. POSTOP CHANGES. PATIENT'S FISTULA IS NOT EVIDENT, CONTRAST HAS NOT COURSED DISTALLY WITHIN THE SIGMOID AND RECTUM. HEPATOMEGALY. Possible hepatic steatosis.
== END | disposition home or self-care (01) ==
LOC: RADCTMAIN 09:01
PROVIDERS: ATTEND Obstetrics & Gynecology
DX: R16.0 Hepatomegaly, not elsewhere classified (principal); K57.90 Diverticulosis of intestine, part unspecified, without perforation or abscess without bleeding; N89.8 Other specified noninflammatory disorders of vagina; N82.4 Other female intestinal-genital tract fistulae; Z98.890 Other specified postprocedural states
CPT/HCPCS: 82565; 84520; 74177; 36415; Q9967

== ENCOUNTER 2023-02-15 16:14 | Emergency (ER) | payer OTHER ==
[2023-02-15] MEDS ORDERED: SODIUM CHLORIDE 0.9% 1,000 ML IV STA ×2 (16:23→18:38)
[2023-02-15] MEDS ORDERED: HYDROmorphone 1 MG/ML 1 ML SYRINGE IVP STA (16:33)
[2023-02-15 16:43] VITALS: BP 157/103; PULSE 90; RESP 18; TEMP 98
[2023-02-15 16:48] LABS: Basophils % (A) 1 %; Eosinophils # (A) 0.2 k/uL (0-0.7); Eosinophils % (A) 2 %; HCT 39.7 % (34.0-46.0); HGB 13.4 gm/dL (11.4-16.0); Lymphocytes # (A) 1.3 k/uL (1.0-4.8); Lymphocytes % (A) 17 %; MCH 33.7 pg (25.0-35.0); MCHC 33.8 g/dL (31.0-37.0); MCV 99.7 fL (80.0-100.0); Mean Platelet Volume 6.8; Monocytes # (A) 0.4 k/uL (0-1.0); Monocytes % (A) 5 %; Neutrophils # (A) 5.6 k/uL (1.3-7.7); Neutrophils % (A) 74 %; Platelet Count 308 k/uL (150-450); RBC 3.98 m/uL (3.80-5.40); RDW 12.7 % (11.5-15.5); WBC 7.6 k/uL (3.8-10.6)
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
[2023-02-15 16:57] LABS: ALT 58 U/L (4-34); AST 68 U/L (14-36); African American GFR (CKD) >90 (>60 ml/min/1.73 sqM); Albumin 4.3 g/dL (3.5-5.0); Alcohol 41 mg/dL; Alkaline Phosphatase 61 U/L (38-126); Anion Gap 14 mmol/L; Blood Urea Nitrogen 10 mg/dL (7-17); Carbon Dioxide 18 mmol/L (22-30); Chloride 91 mmol/L (98-107); Glucose 98 mg/dL (74-99); Non-African American GFR(CKD) >90 (>60 ml/min/1.73 sqM); Potassium 4.2 mmol/L (3.5-5.1); Sodium 123 mmol/L (137-145); Total Bilirubin 0.5 mg/dL (0.2-1.3); Total Protein 7.3 g/dL (6.3-8.2)
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
[2023-02-15 17:06] LABS: INR 0.9 (<1.2); Prothrombin Time 10.1 sec (9.0-12.0)
[2023-02-15 17:20] LABS: Partial Thromboplastin Time 21.1 sec (22.0-30.0)
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
== END 2023-02-15 19:12 | disposition home or self-care (01) ==
LOC: EC 16:14
DX: E87.1 Hypo-osmolality and hyponatremia (principal); E11.9 Type 2 diabetes mellitus without complications; E78.5 Hyperlipidemia, unspecified; I10 Essential (primary) hypertension; M19.90 Unspecified osteoarthritis, unspecified site; F41.9 Anxiety disorder, unspecified; F12.90 Cannabis use, unspecified, uncomplicated; Z79.84 Long term (current) use of oral hypoglycemic drugs; Z79.899 Other long term (current) drug therapy; V43.52XA Car driver injured in collision with other type car in traffic accident, initial encounter
CPT/HCPCS: 36415; 86900; 86901; 80053; 84484; 85025; 85610; 85730; 86850; 80320; 72170; 71045; 72129; 72125; 72132; 70450; 71260; 74177; 99285; 96374; 96361; J1170; Q9967